=== PATIENT | female | born 1955 | race Asian ===

== ENCOUNTER 2024-03-25 16:21 | Inpatient (IN) | payer OTHER ==
[2024-03-25] MEDS: ACETAMINOPHEN 1000 MG/100 ML BAG IVPB ONE (17:45)
[2024-03-25] MEDS: LACTATED RINGERS SOLUTION 1000 ML INFUS.BAG IV ONE (17:45)
[2024-03-25 17:47] LABS: VENOUS BASE EXCESS -0.4 mmol/L (-2-2); VENOUS O2 SATURATION 70.6 % (70-80); VENOUS PH 7.432 (7.310-7.410)
[2024-03-25 17:49] LABS: BASO % 0.1 % (0-2.0); HEMATOCRIT 32.2 % (32.4-45.2); HEMOGLOBIN 10.8 GM/dL (10.7-15.3); LYMPH % 3.4 % (8-40); MCH 30.2 pg (25.7-33.7); MCHC 33.6 g/dl (32.0-36.0); MONO % 6.9 % (3.8-10.2); NEUT % 89.6 % (42.8-82.8); PLATELET COUNT 277 10^3/uL (134-434); RBC 3.58 M/mm3 (3.60-5.2); WHITE BLOOD COUNT 16.3 K/mm3 (4.0-10.0)
[2024-03-25] MEDS ORDERED: ACETAMINOPHEN INJECTION 100 ML ONE (17:50)
[2024-03-25 17:54] LABS: INR 1.29 (0.83-1.09); PROTHROMBIN TIME (PATIENT) 14.5 SEC (9.7-13.0)
[2024-03-25 17:57] LABS: ACTIVATED PTT 34.6 SECONDS (25.2-36.5)
[2024-03-25 18:15] LABS: CHLORIDE 96 mmol/L (98-107); POTASSIUM 5.1 mmol/L (3.5-5.1); SODIUM 129 mmol/L (136-145)
[2024-03-25 18:17] LABS: CALCIUM 8.6 mg/dL (8.5-10.1)
[2024-03-25 18:18] LABS: ALBUMIN 3.2 g/dl (3.4-5.0); ANION GAP 8 mmol/L (4-13); CO2 26 mmol/L (21-32)
[2024-03-25 18:21] LABS: CREATININE 1.6 mg/dL (0.55-1.3); SGOT/AST 38 U/L (15-37); SGPT/ALT 16 U/L (13-61)
[2024-03-25 18:22] LABS: BILIRUBIN,TOTAL 1.8 mg/dL (0.2-1); TOT PROT 7.2 g/dl (6.4-8.2)
[2024-03-25 18:24] LABS: ALK PHOS 57 U/L (45-117)
[2024-03-25 18:25] LABS: GLUCOSE,RANDOM 470 mg/dL (74-106)
[2024-03-25] MEDS ORDERED: VANCOMYCIN 1 GRAM (PRE-DOCKED) 1,000 MG/250 ML BAG IVPB ONE (18:39)
[2024-03-25] MEDS ORDERED: PIPERACILLIN/TAZOB 3.375 GM 3.375 GM/50 ML BAG IVPB ONE (18:40)
[2024-03-25 18:41] LABS: EPI CELLS 1 /uL (0-25.1); HYALINE CASTS 1 /uL (0-3.1); PH,URINE 5.5 (5.0-8.0); URINE APPEARANCE CLEAR; URINE BACTERIA >9,000 /uL (0-1359); URINE BILIRUBIN NEGATIVE (NEGATIVE); URINE COLOR YELLOW; URINE GLUCOSE (UA) 3+ (NEGATIVE); URINE KETONE TRACE (NEGATIVE); URINE LEUK ESTERASE TRACE (NEGATIVE); URINE NITRITE POSITIVE (NEGATIVE); URINE PROTEIN 1+ (NEGATIVE); URINE RBC 10 /uL (0-23.9); URINE UROBILINOGEN 0.2 mg/dL (0.2-1.0); URINE WBC 149 /uL (0-25.8)
[2024-03-25] MEDS ORDERED: DEXTROSE 50%-WATER 25 GM/50 ML DISP.SYRIN IVPUSH PRN (18:45)
[2024-03-25] MEDS: PIPERACILLIN/TAZOB 3.375 GM 3.375 GM in DEXTROSE 5%-WATER - 50 ML IVPB ONE (18:53)
[2024-03-25] MEDS: VANCOMYCIN 1,000 MG in DEXTROSE 5%-WATER - 250 ML IVPB ONE (18:53)
[2024-03-25] MEDS: SODIUM CHLORIDE 0.9% 500 ML INFUS.BAG IV ONE ×2 (18:53→23:50)
[2024-03-25 19:55] LABS: MAGNESIUM 1.8 mg/dL (1.8-2.4)
[2024-03-25 19:58] LABS: BILIRUBIN,DIRECT 0.2 mg/dL (0.0-0.2)
[2024-03-25] MEDS ORDERED: INSULIN (LEVEMIR) 100 UNITS/ML UNITS SQ ONE (20:10)
[2024-03-25 20:40] LABS: URINE BARBITURATES NEGATIVE (NEGATIVE); URINE BENZODIAZEPINES NEGATIVE (NEGATIVE)
[2024-03-25 20:41] LABS: COCAINE, UR NEGATIVE (NEGATIVE); METHADONE, UR NEGATIVE (NEGATIVE); PHENCYCLIDINE,URINE NEGATIVE (NEGATIVE)
[2024-03-25 20:45] LABS: OPIATES, URI NEGATIVE (NEGATIVE); URINE AMPHETAMINES NEGATIVE (NEGATIVE)
[2024-03-25] MEDS: INSULIN (LEVEMIR) 100 UNITS/ML UNITS SQ ONE (20:50)
[2024-03-25 21:21] LABS: HIV INTERPRETATION NEGATIVE (NEGATIVE)
[2024-03-25] MEDS ORDERED: DEXTROSE 50%-WATER - 25 GM/50 ML VIAL IVPUSH PRN (21:50)
[2024-03-25] MEDS ORDERED: INSULIN ASPART SLIDING SCALE (NOVOLOG) 1 VIAL SQ SCH ×2 (22:00)
[2024-03-25 22:07] LABS: CHLORIDE 103 mmol/L (98-107); POTASSIUM 4.3 mmol/L (3.5-5.1); SODIUM 136 mmol/L (136-145)
[2024-03-25 22:09] LABS: CALCIUM 7.9 mg/dL (8.5-10.1)
[2024-03-25 22:10] LABS: ALBUMIN 2.6 g/dl (3.4-5.0); ANION GAP 10 mmol/L (4-13); BLOOD UREA NITROGEN 26.7 mg/dL (7-18); CO2 23 mmol/L (21-32); MAGNESIUM 1.7 mg/dL (1.8-2.4)
[2024-03-25 22:13] LABS: CREATININE 1.3 mg/dL (0.55-1.3); PHOSPHOROUS 2.9 mg/dL (2.5-4.9); SGOT/AST 28 U/L (15-37); SGPT/ALT 14 U/L (13-61)
[2024-03-25 22:14] LABS: BILIRUBIN,TOTAL 1.4 mg/dL (0.2-1)
[2024-03-25 22:15] LABS: TOT PROT 5.8 g/dl (6.4-8.2)
[2024-03-25 22:23] LABS: ALK PHOS 43 U/L (45-117); GLUCOSE,RANDOM 433 mg/dL (74-106)
[2024-03-25] MEDS: PANTOPRAZOLE SODIUM 40 MG VIAL IVPUSH SCH (22:27)
[2024-03-25] MEDS: SODIUM CHLORIDE 1,000 ML IV SCH (22:27)
[2024-03-25] MEDS: CALCIUM GLUCONATE 10% - 1,000 MG/10 ML VIAL IVPB ONE (22:34)
[2024-03-25] MEDS: MAGNESIUM SULFATE IN WATER 2 GM/50 ML IVPB IVPB ONE (22:41)
[2024-03-25 23:23] LABS: VENOUS BASE EXCESS -2.9 mmol/L (-2-2); VENOUS O2 SATURATION 89.7 % (70-80); VENOUS PCO2 37.7 mmHg (38-52); VENOUS PH 7.381 (7.310-7.410)
[2024-03-25] MEDS: INSULIN REGULAR 100 UNITS in SODIUM CHLORIDE 99 ML IVPB SCH (23:23)
[2024-03-25] MEDS: INSULIN REGULAR HUMAN 100 UNITS/ML *VIAL IVPUSH ONE (23:36)
[2024-03-26 01:53] LABS: VENOUS BASE EXCESS -2.6 mmol/L (-2-2); VENOUS O2 SATURATION 44.3 % (70-80); VENOUS PCO2 50.3 mmHg (38-52); VENOUS PH 7.299 (7.310-7.410)
[2024-03-26] MEDS: SODIUM CHLORIDE 0.9% 500 ML INFUS.BAG IV ONE (02:02)
[2024-03-26 02:13] LABS: POTASSIUM 3.9 mmol/L (3.5-5.1)
[2024-03-26 02:14] LABS: CALCIUM 8.2 mg/dL (8.5-10.1)
[2024-03-26 02:15] LABS: BLOOD UREA NITROGEN 25.2 mg/dL (7-18)
[2024-03-26 02:18] LABS: CREATININE 1.2 mg/dL (0.55-1.3)
[2024-03-26] MEDS: DEXTROSE 10%-WATER 500 ML INFUS.BAG IV ONE (04:38)
[2024-03-26] MEDS: ACETAMINOPHEN 1000 MG/100 ML BAG IVPB PRN (06:07)
[2024-03-26] MEDS: PIPERACILLIN/TAZOB 4.5 GM 4.5 GM in DEXTROSE 5%-WATER 100 ML IVPB SCH ×2 (06:19→12:34)
[2024-03-26] MEDS: SODIUM CHLORIDE 1,000 ML IV SCH (06:52)
[2024-03-26 07:55] LABS: VENOUS O2 SATURATION 93.4 % (70-80); VENOUS PCO2 30.1 mmHg (38-52); VENOUS PH 7.467 (7.310-7.410)
[2024-03-26 09:19] LABS: POTASSIUM 4.1 mmol/L (3.5-5.1)
[2024-03-26 09:21] LABS: BLOOD UREA NITROGEN 20.9 mg/dL (7-18)
[2024-03-26 09:24] LABS: CREATININE 1.1 mg/dL (0.55-1.3)
[2024-03-26] MEDS: LACTATED RINGERS SOLUTION 1,000 ML/1,000 ML INFUS.BAG IV STA (09:43)
[2024-03-26] MEDS: INSULIN REGULAR HUMAN 100 UNITS/ML *VIAL* (FOR IVP) IVPUSH ONE (10:04)
[2024-03-26] MEDS: INSULIN REGULAR 100 UNITS in SODIUM CHLORIDE 99 ML IVPB SCH (10:04)
[2024-03-26] MEDS: INSULIN DRIP - PLEASE ORDER UNDER SETS NR ONE ×2 (10:04→10:05)
[2024-03-26] MEDS: ENOXAPARIN NA (PORCINE) 30 MG/0.3 ML DISP.SYRIN SQ SCH (10:11)
[2024-03-26] MEDS: VANCOMYCIN 1 GM PREMIX - 1 GM/200 ML BAG IVPB SCH (12:34)
[2024-03-26] MEDS: PIPERACILLIN/TAZOB 3.375 GM 3.375 GM in DEXTROSE 5%-WATER - 50 ML IVPB SCH (17:16)
[2024-03-26] MEDS ORDERED: VANCOMYCIN/WATER FOR INJ (PEG) 1,000 MG/200 ML BAG IVPB SCH (19:00)
[2024-03-27] MEDS: ACETAMINOPHEN 1000 MG/100 ML BAG IVPB PRN (00:37)
[2024-03-27 09:45] LABS: HEMOGLOBIN 10.9 GM/dL (10.7-15.3); MCH 30.7 pg (25.7-33.7); MEAN CELL VOLUME 90.3 fl (80-96); MEAN PLT VOLUME 7.8 fl (7.5-11.1); PLATELET COUNT 277 10^3/uL (134-434); RBC 3.55 M/mm3 (3.60-5.2); RDW 12.9 % (11.6-15.6); WHITE BLOOD COUNT 10.5 K/mm3 (4.0-10.0)
[2024-03-27] MEDS: LACTOBACILLUS ACIDOPHILUS 1 TABLET PO SCH (09:52)
[2024-03-27] MEDS: ENOXAPARIN NA (PORCINE) 40 MG/0.4 ML DISP.SYRIN SQ SCH (09:56)
[2024-03-27 10:00] LABS: POTASSIUM 3.6 mmol/L (3.5-5.1)
[2024-03-27] MEDS ORDERED: PANTOPRAZOLE SODIUM 40 MG VIAL IVPUSH SCH (10:00)
[2024-03-27] MEDS ORDERED: ENOXAPARIN NA (PORCINE) 30 MG/0.3 ML DISP.SYRIN SQ SCH (10:00)
[2024-03-27 10:03] LABS: BLOOD UREA NITROGEN 14.5 mg/dL (7-18); CALCIUM 8.4 mg/dL (8.5-10.1)
[2024-03-27] MEDS: PNEUMOC 20-VAL CONJ-DIP CRM/PF 0.5 ML SYRINGE IM ONE (11:12)
[2024-03-27] MEDS: INSULIN (LEVEMIR) 100 UNITS/ML UNITS SQ SCH (12:34)
[2024-03-27] MEDS: INSULIN (NOVOLOG) ASPART 100 UNITS/ML 10ML VIAL SQ ONE (15:52)
[2024-03-27] MEDS: INSULIN ASPART SLIDING SCALE (NOVOLOG) 1 VIAL SQ SCH (17:31)
[2024-03-27] MEDS: ACETAMINOPHEN 1000 MG/100 ML BAG IVPB ONE (20:47)
[2024-03-27] MEDS: traZODone HCL 100 MG TABLET (FP) PO SCH (21:43)
[2024-03-27] MEDS: ATORVASTATIN CA 20 MG TABLET (FP) PO SCH (21:43)
[2024-03-28 10:11] LABS: POTASSIUM 3.4 mmol/L (3.5-5.1)
[2024-03-28 10:16] LABS: CALCIUM 8.8 mg/dL (8.5-10.1)
[2024-03-28 10:17] LABS: BLOOD UREA NITROGEN 13.8 mg/dL (7-18)
[2024-03-28 10:20] LABS: CREATININE 0.9 mg/dL (0.55-1.3)
[2024-03-28] MEDS: POTASSIUM CHLORIDE ORAL LIQUID 20 MEQ/15 ML PO ONE (12:34)
[2024-03-28] MEDS: ERTAPENEM SODIUM 1 GM in SODIUM CHLORIDE 50 ML IVPB SCH (15:06)
[2024-03-31 11:26] LABS: POTASSIUM 3.6 mmol/L (3.5-5.1)
[2024-03-31 11:30] LABS: ALBUMIN 2.8 g/dl (3.4-5.0); BLOOD UREA NITROGEN 16.8 mg/dL (7-18); CALCIUM 8.7 mg/dL (8.5-10.1); MAGNESIUM 1.8 mg/dL (1.8-2.4)
[2024-03-31 11:34] LABS: BILIRUBIN,TOTAL 0.5 mg/dL (0.2-1); TOT PROT 6.5 g/dl (6.4-8.2)
[2024-03-31 14:33] VITALS: BMI 30.9
[2024-04-01 14:19] VITALS: RESP 18
[2024-04-03 00:33] VITALS: BP 138/79; PULSE 78; TEMP 98.9
== END 2024-04-02 23:55 | DRG 871 ==
LOC: JER 16:21 → JICU 20:30 → J6W 03-26 14:45 → J7W 03-31 18:59
PROVIDERS: ADMIT Internal Medicine Pulmonary Disease
DX: A41.9 Sepsis, unspecified organism (principal); G93.41 Metabolic encephalopathy; N39.0 Urinary tract infection, site not specified; Z16.12 Extended spectrum beta lactamase (ESBL) resistance; G93.40 Encephalopathy, unspecified; E11.65 Type 2 diabetes mellitus with hyperglycemia
CPT/HCPCS: 0241U-QW; 36415; 70450-TC; 71045-TC-FY; 80048; 80053; 80307; 81003; 82010; 82140; 82248; 82550; 82553; 82803; 82962; 83605; 83735; 83930; 83935; 84100; 84300; 84443; 84484; 85025; 85027; 85610; 85730; 86803; 86850; 86900; 86901; 87040; 87086; 87186; 87389; 93005; 93010; 97116-GP; 97161-GP; 99291; J0131